=== PATIENT | male | born 1995 | race American Indian/Alaskan Native ===

== ENCOUNTER 2018-03-27 13:18 | Emergency (ER) | payer BC, MEDICAID, OTHER ==
[2018-03-27 13:24] VITALS: BP 116/65; PULSE 57; RESP 16; TEMP 98; O2SAT 100
--- NOTE | 2018-03-27 14:13 | ED PDOC ---
HPI: Headache Time Seen by Provider: 03/27/18 13:42 Chief Complaint (Nursing): Headache Chief Complaint (Provider): Headache History Per: Patient History/Exam Limitations: no limitations Onset/Duration Of Symptoms: Persistent, Worse Since (yesterday) Current Symptoms Are (Timing): Still Present Additional Complaint(s): 22 year old male presents to ED for an evaluation of worsening headache in his forehead associated with light and sound sensitivity since yesterday. Patient states he has had "migraines since his teen years" but has not been properly evaluated by a specialist yet. He reports some improvement in symptoms with Aleve, last use was this morning. He denies any fever, chills, nausea, vomiting, head injury, or weakness. Patient states he came to ED only because he was urged by mother. PMD: none provided Past Medical History Reviewed: Historical Data, Nursing Documentation, Vital Signs Vital Signs: Last Vital Signs Temp 98 F 03/27/18 13:21 Pulse 57 L 03/27/18 13:21 Resp 16 03/27/18 13:21 BP 116/65 03/27/18 13:21 Pulse Ox 100 03/27/18 13:21 - Medical History PMH: Anxiety, Depression Denies: Diabetes, Hepatitis, HIV, HTN, Chronic Kidney Disease, Seizures, Sex ually Transmitted Disease - Family History Family History: States: Unknown Family Hx - Immunization History Hx Tetanus Toxoid Vaccination: No Hx Influenza Vaccination: No Hx Pneumococcal Vaccination: No - Home Medications Home Medications: Ambulatory Orders Medication Instructions Recorded Escitalopram [Lexapro] 10 mg PO HS #0 tab 11/27/14 Metoclopramide [Reglan] 10 mg PO TID PRN #12 tab 03/27/18 - Allergies Allergies/Adverse Reactions: Allergies Allergy/AdvReac Type Severity Reaction Status Date / Time No Known Allergies Allergy Verified 03/27/18 13:21 Review of Systems ROS Statement: Except As Marked, All Systems Reviewed And Found Negative Constitutional: Negative for: Fever, Chills Eyes: Positive for: Other (light sensitivity) ENT: Positive for: Other (noise sensitivity) Gastrointestinal: Negative for: Nausea, Vomiting Neurological: Positive for: Headache (forehead). Negative for: Weakness Physical Exam - Reviewed Nursing Documentation Reviewed: Yes Vital Signs Reviewed: Yes - Physical Exam Appears: Positive for: Non-toxic, No Acute Distress Head Exam: Positive for: ATRAUMATIC, NORMAL INSPECTION, NORMOCEPHALIC Skin: Positive for: Normal Color, Warm Eye Exam: Positive for: EOMI, Normal appearance, PERRL ENT: Positive for: Normal ENT Inspection, TM Is/Are (non-bulging and non- erythmatous). Negative for: Sinus Pain/Drainage, Pharyngeal Erythema, Tonsillar Swelling Neck: Positive for: Normal, Supple Cardiovascular/Chest: Positive for: Regular Rate, Rhythm Respiratory: Positive for: Normal Breath Sounds. Negative for: Respiratory Distress Neurologic/Psych: Positive for: Alert (x3), plastic parts fabricator II-XII (grossly intact), Oriented. Negative for: Motor/Sensory Deficits, Aphasia, Facial Droop - ECG O2 Sat by Pulse Oximetry: 100 (RA) Pulse Ox Interpretation: Normal Medical Decision Making Medical Decision Making: Time: 1410 --Upon provider evaluation, patient is medically stable and requires no further treatment in the ED at this time. Patient declined CT of the head when offered by provider as he did not feel his symptoms were emergent and came to ED at the request of his mother. However, he is requesting a referral for a neurologist. Patient will be discharged home with Rx for Reglan 10mg. Counseling was provided and all questions were answered regarding diagnosis. There is agreement to discharge plan. Return if symptoms persist or worsen. Clinical Impression: Chronic Headache Disorder Scribe Attestation: Documented by Nia Campbell, acting as a scribe for Dakota Carrillo PA-C. Provider Scribe Attestation: All medical record entries made by the Scribe were at my direction and personally dictated by me. I have reviewed the chart and agree that the record accurately reflects my personal performance of the history, physical exam, medical decision making, and the department course for this patient. I have also personally directed, reviewed, and agree with the discharge instructions and disposition. Disposition - Clinical Impression Clinical Impression: Chronic headache disorder - Patient ED Disposition Is Patient to be Admitted: No Counseled Patient/Family Regarding: Diagnosis, Need For Followup - Disposition Referrals: Al Olvera MD [Medical Doctor] - [facility] [Outside] [facility] [Outside] Disposition: Routine/Home Disposition Time: 14:11 Condition: STABLE Additional Instructions: FOLLOW UP WITH DR. OLVERA FOR FURTHER EVALUATION. RETURN TO ED IMMEDIATELY FOR ANY CONCERNS OR QUESTIONS. LOC [place], thank you for letting us take care of you today. Your provider was Fred Kendrick MD and you were treated for HEADACHE. The emergency medical care you received today was directed at your acute symptoms. If you were prescribed any medication, please fill it and take as directed. It may take several days for your symptoms to resolve. Return to the Emergency Department if your symptoms worsen, do not improve, or if you have any other problems. Please contact your doctor or call one of the physicians/clinics you have been referred to that are listed on the Patient Visit Information form that is included in your discharge packet. Bring any paperwork you were given at discharge with you along with any medications you are taking to your follow up visit. Our treatment cannot replace ongoing medical care by a primary care provider outside of the emergency department. Thank you for allowing the [facility] team to be part of your care today. If you had an X-Ray or CT scan: A Radiologist will review the ED reading if any change in treatment is needed we will contact you. If you had a blood, urine, or wound culture: It will take several days for the results, if any change in treatment is needed we will contact you. If you had an STI test: It will take 48 hours for the results. Please call after 1 week if you have not heard back. Prescriptions: Metoclopramide [Reglan] 10 mg PO TID PRN #12 tab PRN Reason: Headache or nausea Instructions: Headache, Adult (DC) Forms: [facility])
== END 2018-03-27 14:34 | disposition home or self-care (01) ==
LOC: H.ER 13:18
DX: R51 Headache (principal)

== ENCOUNTER 2018-10-19 00:44 | Emergency (ER) | payer BC, MEDICAID, OTHER ==
[2018-10-19 01:36] VITALS: RESP 18
--- NOTE | 2018-10-19 05:05 | ED PDOC ---
HPI: Psych/Substance Abuse Time Seen by Provider: 10/19/18 02:18 Chief Complaint (Nursing): Psychiatric Evaluation History Per: Patient History/Exam Limitations: no limitations Onset/Duration Of Symptoms: Hrs Current Symptoms Are (Timing): Still Present Additional Complaint(s): 22 year old with history of anxiety and bipolar disorder presenting with anxiety. States he is unable to get to his medications currently because they are at his family member's house which he cannot get into till tomorrow. Patient is asking for dose of his medication to "hold him over" until tomorrow. Denies suicidal or homicidal ideation. Denies alcohol but states he smoked marijuana today. Past Medical History Reviewed: Historical Data, Nursing Documentation, Vital Signs Vital Signs: Last Vital Signs Temp 98.6 F 10/19/18 01:28 Pulse 75 10/19/18 01:28 Resp 18 10/19/18 01:28 BP 136/79 10/19/18 01:28 Pulse Ox 99 10/19/18 01:28 Primary Care Provider: Procedure,Nonphys - Medical History PMH: Anxiety, Depression Denies: Diabetes, Hepatitis, HIV, HTN, Chronic Kidney Disease, Seizures, Sexually Transmitted Disease - Family History Family History: States: Unknown Family Hx - Immunization History Hx Tetanus Toxoid Vaccination: No Hx Influenza Vaccination: No Hx Pneumococcal Vaccination: No - Home Medications Home Medications: Ambulatory Orders Medication Instructions Recorded No Known Home Med 09/17/18 - Allergies Allergies/Adverse Reactions: Allergies Allergy/AdvReac Type Severity Reaction Status Date / Time No Known Allergies Allergy Verified 09/17/18 03:41 Review of Systems ROS Statement: Except As Marked, All Systems Reviewed And Found Negative Psych: Positive for: Anxiety Physical Exam - Reviewed Nursing Documentation Reviewed: Yes Vital Signs Reviewed: Yes - Physical Exam Appears: Positive for: Well, Non-toxic, No Acute Distress Head Exam: Positive for: ATRAUMATIC, NORMAL INSPECTION, NORMOCEPHALIC Skin: Positive for: Normal Color, Warm, DRY Eye Exam: Positive for: EOMI, Normal appearance, PERRL ENT: Positive for: Normal ENT Inspection Neck: Positive for: Normal, Painless ROM Cardiovascular/Chest: Positive for: Regular Rate, Rhythm Respiratory: Positive for: CNT, Normal Breath Sounds Gastrointestinal/Abdominal: Positive for: Normal Exam, Soft Back: Positive for: Normal Inspection Extremity: Positive for: Normal ROM Neurological/Psych: Positive for: Awake, Alert, Normal Tone, Other (Anxious appearing) - ECG O2 Sat by Pulse Oximetry: 99 Medical Decision Making Medical Decision Makin22 year old with bipolar disorder and anxiety presenting with anxiety --Currently calm, cooperative, does not pose danger to himself or others at this time --Will give home dose of trazadone --Advised patient to followup with his psychiatrist --Stable for outpatient followup Disposition - Clinical Impression Clinical Impression: Anxiety - Patient ED Disposition Is Patient to be Admitted: No Counseled Patient/Family Regarding: Diagnosis, Need For Followup - Disposition [facility]errals[facility] Disposition: Routine/Home Disposition Time: 05:05 Condition: GOOD Instructions: Anxiety, Adult (DC)
[2018-10-19 05:43] VITALS: BP 120/78; PULSE 78; TEMP 98.2; O2SAT 98
== END 2018-10-19 05:20 | disposition home or self-care (01) ==
LOC: H.ER 00:44
DX: Z86.59 Personal history of other mental and behavioral disorders (principal); F41.9 Anxiety disorder, unspecified; Z00.8 Encounter for other general examination; F12.90 Cannabis use, unspecified, uncomplicated